=== PATIENT | male | born 1990 | race Caucasian/White ===

== ENCOUNTER 2016-06-08 13:34 | Emergency (ER) | payer OTHER ==
[2016-06-08] MEDS ORDERED: LORazepam 2 MG/ML INJ ONE (13:40)
[2016-06-08] MEDS ORDERED: NS 1,000 ML IV ONE ×2 (13:40→14:33)
[2016-06-08] MEDS ORDERED: LORazepam 2 MG/ML INJ IVP ONE (13:40)
[2016-06-08 13:48] LABS: % IMMATURE GRANULYOCYTES 0.5 % (0.0-1.1); ABSOLUTE IMMATURE GRANULOCYTES 0.08 10^3/uL (0.00-0.10); ABSOLUTE NRBC COUNT 0.03 10^3/uL (0-0.01); ADD DIFF? NO; ADD MORPH? NO; ADD SCAN? YES; ATYPICAL LYMPHOCYTE FLAG 40 (0-99); FRAGMENT RBC FLAG 0 (0-99); HEMATOCRIT 54.4 % (40.0-51.0); HEMOGLOBIN 18.1 g/dL (13.7-17.5); LEFT SHIFT FLG 0 (0-99); LIPEMIA HEMOLYSIS FLAG 80 (0-99); MEAN CELL HEMOGLOBIN 28.3 pg (27.9-34.1); MEAN CELL HEMOGLOBIN CONCENTR. 33.3 g/dL (32.4-36.7); MEAN CELL VOLUME 85.1 fL (81.5-99.8); NRBC-AUTO% 0.2 % (0.0-0.2); PLATELET CLUMPS FLAG 0 (0-99); PLATELET COUNT 254 10^3/uL (150-400); RED BLOOD CELL COUNT 6.39 10^6/uL (4.40-6.38); RED CELL DISTRIBUTION WIDTH 13.9 % (11.5-15.2)
--- NOTE | 2016-06-08 14:01 | EDPHY ---
H & P Time Seen by Provider: 06/08/16 13:34 HPI/ROS: CHIEF COMPLAINT: Seizure HISTORY OF PRESENT ILLNESS: 26-year-old male presents to the emergency department by ambulance after having a witnessed seizure at work. The patient has a known history of epilepsy and takes Keppra 2 g twice daily and Tripletal 600 mg twice daily. He has been compliant with his medications. Despite taking his medications as prescribed, he does have frequent breakthrough seizures. His last seizure was just a few months ago. He states that he remembers going to get lunch today at work and then had a witnessed tonic- clonic seizure. No trauma. No headache. Bystanders apparently thought that he had collapsed and they initiated CPR however paramedics state that he was conscious for them and was initially postictal and has now cleared. EMS is also very aware of this patient as they have seen him after seizures in the past. He denies alcohol or other substance abuse. Denies any reported trauma. Currently has no complaints. Denies chest pain or difficulty breathing. Denies headache. He was not incontinent of urine. He did not bite his tongue. REVIEW OF SYSTEMS: Constitutional: No fever, no chills. Eyes: No double or blurry vision. ENT: No sore throat. Respiratory: No cough, no shortness of breath. Cardiac: No chest pain. Gastrointestinal: No abdominal pain, vomiting or diarrhea. Genitourinary: No dysuria. Musculoskeletal: No neck or back pain. Skin: No rashes. Neurological: No headache. Past Medical/Surgical History: Seizure disorder Social History: Physical Exam: General Appearance: Alert, no distress. Mentating normally and answering questions appropriately. No visible signs of trauma to his head. Eyes: Pupils equal and round. Extraocular motions are all intact. ENT: Mouth: Mucous membranes moist. No tongue abrasion or laceration. Respiratory: No wheezing, rhonchi, or rales, lungs are clear to auscultation. Cardiovascular: Regular rate and rhythm. Gastrointestinal: Abdomen is soft and nontender, no masses, no rebound or guarding, bowel sounds normal. Neurological: Alert and oriented x 3, cranial nerves II through XII grossly intact Skin: Warm and dry, no rashes. Musculoskeletal: Nontender to palpate along the cervical, thoracic or lumbar spine. Neck is supple. Extremities: Full range of motion and no peripheral edema. Psychiatric: Patient is oriented X 3, there is no agitation. Constitutional: Initial Vital Signs Temperature (C) 37.4 C 06/08/16 13:34 Heart Rate 134 H 06/08/16 13:34 Respiratory Rate 18 06/08/16 13:34 Blood Pressure 122/92 H 06/08/16 13:34 O2 Sat (%) 87 L 06/08/16 13:34 O2 Delivery Mode Room Air Allergies/Adverse Reactions: lamotrigine [From Lamictal] Allergy (Intermediate, Verified 06/08/16 14:49) Hives Home Medications: Medication Instructions Recorded levETIRAcetam [Keppra] 1,000 mg PO 06/08/16 Medical Decision Making ED Course/Re-evaluation: 26-year-old male presents to the emergency department with seizure disorder presents after having witnessed seizure at work. The patient takes Keppra and Trileptal as prescribed. He has not missed any medication, however the mother who is at bedside states that he has had breakthrough seizures despite being compliant with his medication. Laboratory studies reveal CO2 of 17. Otherwise his labs are fairly unremarkable. He received IV normal saline. Repeat heart rate was 95. He is drinking apple juice and is comfortable being discharged home with his mother. The patient was also given 1 mg of Ativan IV to prevent further seizure activity in the emergency department. Differential Diagnosis: Seizure including but not limited to electrolyte abnormality, alcohol withdrawal , medication noncompliance, head injury, and breakthrough seizure. - Data Points Laboratory Results: Laboratory Results 06/08/16 13:33 06/08/16 13:33 06/08/16 06/08/16 13:33 13:33 WBC 14.76 10^3/uL H 10^3/uL (3.80-9.50) RBC 6.39 10^6/uL H 10^6/uL (4.40-6.38) Hgb 18.1 g/dL H g/dL (13.7-17.5) Hct 54.4 % H % (40.0-51.0) MCV 85.1 fL fL (81.5-99.8) MCH 28.3 pg pg (27.9-34.1) MCHC 33.3 g/dL g/dL (32.4-36.7) RDW 13.9 % % (11.5-15.2) Plt Count 254 10^3/uL 10^3/uL (150-400) MPV 10.0 fL fL (8.7-11.7) Neut % (Auto) 18.4 % L % (39.3-74.2) Lymph % (Auto) 75.6 % H % (15.0-45.0) Cass % (Auto) 4.1 % L % (4.5-13.0) Eos % (Auto) 0.5 % L % (0.6-7.6) Baso % (Auto) 0.9 % % (0.3-1.7) Nucleat RBC Rel Count 0.2 % % (0.0-0.2) Absolute Neuts (auto) 2.71 10^3/uL 10^3/uL (1.70-6.50) Absolute Lymphs (auto) 11.16 10^3/uL H 10^3/uL (1.00-3.00) Absolute Monos (auto) 0.60 10^3/uL 10^3/uL (0.30-0.80) Absolute Eos (auto) 0.07 10^3/uL 10^3/uL (0.03-0.40) Absolute Basos (auto) 0.14 10^3/uL H 10^3/uL (0.02-0.10) Absolute Nucleated RBC 0.03 10^3/uL H 10^3/uL (0-0.01) Immature Gran % 0.5 % % (0.0-1.1) Seg Neutrophils % 19 % % Band Neutrophils % 4 % % Lymphocytes % 72 % % Monocytes % 5 % % Immature Gran # 0.08 10^3/uL 10^3/uL (0.00-0.10) Absolute Seg Neuts 2.80 10^/uL 10^/uL (1.70-6.50) Absolute Band Neuts 0.59 10^3/uL 10^3/uL (0.00-0.70) Absolute Lymphocytes 10.63 10^3/uL H 10^3/uL (1.00-3.00) Absolute Monocytes 0.74 10^3/uL 10^3/uL (0.30-0.80) RBC/WBC/PLT Morphology NORMAL (NORMAL) Atypical Lymphocytes 3+ H Platelet Estimate ADEQUATE (ADEQ) Smear Review By Pending Sodium 144 mEq/L mEq/L (134-144) Potassium 3.8 mEq/L mEq/L (3.5-5.2) Chloride 102 mEq/L mEq/L (97-110) Carbon Dioxide 18 mEq/l L mEq/l (22-31) Anion Gap 24 mEq/L H mEq/L (8-16) BUN 10 mg/dL mg/dL (7-23) Creatinine 1.0 mg/dL mg/dL (0.7-1.3) Estimated GFR > 60 Glucose 112 mg/dL H mg/dL (70-100) Calcium 9.5 mg/dL mg/dL (8.5-10.4) Medications Given: Discontinued Medications Sodium Chloride (Ns) 1,000 mls @ 0 mls/hr IV ONCE ONE PRN Reason: Wide Open Stop: 06/08/16 13:41 Last Admin: 06/08/16 13:53 Dose: 1,000 mls Sodium Chloride (Ns) 1,000 mls @ 0 mls/hr IV ONCE ONE PRN Reason: Wide Open Stop: 06/08/16 14:34 Last Admin: 06/08/16 14:55 Dose: 1,000 mls Lorazepam (Ativan Injection) 1 mg IVP EDNOW ONE Stop: 06/08/16 13:41 Last Admin: 06/08/16 13:53 Dose: 1 mg Departure - Departure Disposition: Home, Routine, Self-Care Clinical Impression: Seizure Condition: Fair Instructions: Epilepsy (ED) Additional Instructions: Continue medications as prescribed. Follow up with your neurologist. He should not drive a car, climb ladders, or operate any machinery until cleared by your neurologist. Referrals: William Marcano MD [Medical Doctor] - As per Instructions (Neurologist on-call)
[2016-06-08 14:03] LABS: ANION GAP 24 mEq/L (8-16); CALCIUM 9.5 mg/dL (8.5-10.4); CARBON DIOXIDE 18 mEq/l (22-31); CHLORIDE 102 mEq/L (97-110); GLOMERULAR FILTRATION RATE > 60; GLUCOSE 112 mg/dL (70-100); POTASSIUM 3.8 mEq/L (3.5-5.2); SODIUM 144 mEq/L (134-144)
[2016-06-08 14:40] LABS: SCAN POSITIVE
[2016-06-08 14:42] LABS: PLATELET ESTIMATE ADEQUATE (ADEQ)
[2016-06-08 14:44] VITALS: RESP 18
[2016-06-08 15:25] VITALS: BP 120/88; PULSE 96; TEMP 98.4; O2SAT 96
== END 2016-06-08 15:24 | disposition home or self-care (01) ==
LOC: EDUNIT# → EDBD
DX: G40.909 Epilepsy, unspecified, not intractable, without status epilepticus (principal)
CPT/HCPCS: 96374; J2060